=== PATIENT | male | born 1995 | race Hispanic/Latino ===

== ENCOUNTER 2019-03-22 | Emergency (ER) | payer SELFPAY ==
[2019-03-22] MEDS ORDERED: KEFLEX500 M1 PO (18:38)
[2019-03-22 18:41] LABS: HEMATOCRIT 39.8 % (39.0-50.0); HEMOGLOBIN 13.8 g/dl (14.0-18.0); MEAN CELL VOLUME 90.5 fL CALC (80.0-100.0); MEAN CORPUSCULAR HGB 31.4 pG CALC (26.0-32.0); MEAN CORPUSCULAR HGB CONC 34.7 g/L CALC (32.0-36.0); NEUT# 17.42 thou/uL (1.82-7.42); RED BLOOD COUNT 4.4 mill/uL (4.70-6.10); RED CELL DISTRI WIDTH 12.7 % (11.5-15.5)
[2019-03-22 18:57] LABS: ALBUMIN 3.5 g/dL (3.2-5.0); ALKALINE PHOSPHATASE 166 u/l (38-126); ANION GAP 13 (6-22 (CALC)); BILIRUBIN, TOTAL 1.8 mg/dL (0.0-1.4); BUN 14 mg/dL (9-20); BUN/CREATININE RATIO 14 (12-20 (CALC)); CARBON DIOXIDE 28 mmol/l (22-30); CHLORIDE 97 mmol/l (95-108); GFR > 60 ML/MIN (>=60 (CALC)); GFR FOR AFR.AMER. > 60 ML/MIN (>=60 (CALC)); POTASSIUM 3.5 mmol/l (3.5-5.1); SGOT/AST 108 u/l (17-59); SODIUM 134 mmol/l (137-146); TOTAL PROTEIN 7.4 g/dL (6.3-8.2)
== END 2019-03-22 18:57 | disposition home or self-care (01) | DRG 603 ==
DX: L03.114 Cellulitis of left upper limb (principal)

== ENCOUNTER 2019-03-23 | Emergency (ER) | payer SELFPAY ==
[~2019-03-23] MED LIST: KEFLEX500 M1 PO
== END 2019-03-23 16:30 | disposition home or self-care (01) | DRG 603 ==
DX: L03.114 Cellulitis of left upper limb (principal)